=== PATIENT | female | born 1960 | race American Indian/Alaskan Native ===

== ENCOUNTER 2022-09-30 17:06 | Emergency (ER) | payer OTHER ==
[~2022-09-30] VITALS: Ht 152.4 cm; Wt 59.9 kg
[2022-09-30 17:17] VITALS: BP_SYST 165; PULSE 72; RESP 18; TEMP 98; O2SAT 98
[2022-09-30] MEDS ORDERED: LOSA50TA3 PO (22:37)
[2022-09-30 22:49] VITALS: BP_SYST 165; PULSE 68; RESP 17; TEMP 98; O2SAT 100
== END 2022-09-30 22:49 | disposition home or self-care (01) ==
LOC: SED 17:06
DX: I10 Essential (primary) hypertension (principal); R51.9 Headache, unspecified; E78.5 Hyperlipidemia, unspecified; Z79.899 Other long term (current) drug therapy
CPT/HCPCS: 99283